=== PATIENT | female | born 1980 | race Caucasian/White ===

== ENCOUNTER 2017-12-31 14:06 | Emergency (ER) | payer OTHER ==
[2017-12-31] MEDS: MECLIZINE 12.5 MG TAB PO (18:16)
[2017-12-31] MEDS: KETOROLAC 60 MG INJ IM (18:22)
[2017-12-31] MEDS: LORAZEPAM 1 MG TAB PO (19:07)
[2017-12-31] MEDS: ONDANSETRON (ODT) 4 MG TAB ODT (19:07)
== END 2017-12-31 20:30 | disposition home or self-care (01) ==
LOC: FTE 20:30
DX: F41.1 Generalized anxiety disorder (principal)
CPT/HCPCS: 81025; 96372; 99284-25

== ENCOUNTER 2018-02-21 15:30 | Emergency (ER) | payer OTHER ==
[2018-02-21] MEDS: IBUPROFEN 600 MG TAB PO (16:35)
[2018-02-21] MEDS: DIPHTH/TET/ACEL PERTUSS (ADULT) 0.5 ML VIAL IM* (16:36)
== END 2018-02-21 17:05 | disposition home or self-care (01) ==
LOC: FTE 15:30
DX: S61.012A Laceration without foreign body of left thumb without damage to nail, initial encounter (principal); X58.XXXA Exposure to other specified factors, initial encounter; Y92.9 Unspecified place or not applicable; Z23 Encounter for immunization
CPT/HCPCS: 12001; 90471; 90715; 99283-25

== ENCOUNTER 2018-06-21 08:15 | Emergency (ER) | payer OTHER ==
[2018-06-21] MEDS: LORAZEPAM 2 MG INJ IM ×2 (08:53→10:05)
[2018-06-21] MEDS ORDERED: LORAZEPAM 1 MG TAB PO (09:00)
== END 2018-06-21 10:58 | disposition home or self-care (01) ==
LOC: FTE 08:15
DX: F41.9 Anxiety disorder, unspecified (principal); E11.9 Type 2 diabetes mellitus without complications; Z85.828 Personal history of other malignant neoplasm of skin
CPT/HCPCS: 81025; 96372; 99284-25

== ENCOUNTER 2018-10-12 18:23 | Emergency (ER) | payer OTHER ==
[2018-10-12 20:47] LABS: ADD MAN DIFF? NO
[2018-10-12 20:49] LABS: WHITE BLOOD COUNT 10.8 10^3/ul (4.8-10.8)
[2018-10-12 20:49] LABS: BASOPHIL # 0.1 10^3/ul (0.0-0.1); BASOPHILS % 0.7 % (0.0-2.0); EOSINOPHILS # 0.4 10^3/ul (0.0-0.5); EOSINOPHILS % 4.1 % (0.0-7.0); HEMATOCRIT 44.2 % (37.0-47.0); HEMOGLOBIN 14.7 g/dl (12.0-16.0); LYMPHOCYTES # 4.5 10^3/ul (0.8-2.9); LYMPHOCYTES % 41.6 % (15.0-51.0); MEAN CORPUSCULAR HEMOGLOBIN 28.9 pg (29.0-33.0); MEAN CORPUSCULAR HGB CONC 33.3 g/dl (32.0-37.0); MEAN CORPUSCULAR VOLUME 86.8 fl (82.0-101.0); MEAN PLATELET VOLUME 9.1 fl (7.4-10.4); MONOCYTE # 0.5 10^3/ul (0.3-0.9); MONOCYTES % 4.9 % (0.0-11.0); NEUTROPHIL # 5.2 10^3/ul (1.6-7.5); NEUTROPHILS % 48.3 % (39.0-77.0); PLATELET COUNT 422 10^3/UL (140-415); RED BLOOD COUNT 5.09 10^6/ul (4.20-5.40)
[2018-10-12 20:53] LABS: ADD UMIC YES; UR ASCORBIC ACID NEGATIVE (NEGATIVE); UR BACTERIA FEW /HPF (NONE SEEN); UR BILIRUBIN (Dip) NEGATIVE (NEGATIVE); UR BLOOD (Dip) 1+ mg/dL (NEGATIVE); UR CLARITY CLOUDY (CLEAR); UR COLOR YELLOW (YELLOW); UR GLUCOSE (Dip) NEGATIVE (NEGATIVE); UR KETONES (Dip) NEGATIVE (NEGATIVE); UR LEUKOCYTE ESTERASE (Dip) 2+ Leu/ul (NEGATIVE); UR MUCUS MODERATE /HPF (NONE SEEN); UR NITRITE (Dip) NEGATIVE (NEGATIVE); UR RBC 21 /HPF (0-5); UR SPECIFIC GRAVITY (Dip) 1.023 (1.003-1.030); UR SQUAMOUS EPITHELIAL CELL MANY /HPF (FEW); UR TOTAL PROTEIN (Dip) 1+ mg/dl (NEGATIVE); UR UROBILINOGEN (Dip) 2+ mg/dL (NEGATIVE); UR WBC 25 /HPF (0-5)
[2018-10-12 21:11] LABS: ALANINE AMINOTRANSFERASE 53 IU/L (13-69); ALBUMIN 4.6 g/dl (3.3-4.9); ALBUMIN/GLOBULIN RATIO 1.64; ALKALINE PHOSPHATASE 105 IU/L (42-121); ANION GAP 13 (5-13); ASPARTATE AMINO TRANSFERASE 37 IU/L (15-46); BILIRUBIN,INDIRECT 0.5 mg/dl (0-1.1); BILIRUBIN,TOTAL 0.5 mg/dl (0.2-1.3); BLOOD UREA NITROGEN 11 mg/dl (7-20); CALCIUM 9.9 mg/dl (8.4-10.2); CARBON DIOXIDE 29 mmol/L (21-31); CHLORIDE 102 mmol/L (97-110); CREATININE 0.55 mg/dl (0.44-1.00); Estimated GFR > 60 mL/min (>60); GLUCOSE 106 mg/dl (70-220); POTASSIUM 4.4 mmol/L (3.5-5.1); SODIUM 144 mmol/L (135-144); TOTAL PROTEIN 7.4 g/dl (6.1-8.1)
[2018-10-12 21:28] LABS: T3 UPTAKE 28.1 % (23.5-40.5)
[2018-10-12 21:31] LABS: FREE T4 (FREE THYROXINE) 0.96 ng/dl (0.79-2.35)
[2018-10-12 22:09] LABS: FREE THYROXINE INDEX (Calc) 2.67 ug/ml (0.65-3.89); T4 (THYROXINE) 9.5 ug/dl (5.5-11.0)
== END 2018-10-12 22:35 | disposition home or self-care (01) ==
LOC: FTE 18:23
DX: N39.0 Urinary tract infection, site not specified (principal); E11.9 Type 2 diabetes mellitus without complications
CPT/HCPCS: 80053; 81001; 81025; 84436; 84439; 84443; 84479; 84481; 85025; 87086; 99283

== ENCOUNTER 2018-12-30 09:44 | Emergency (ER) | payer OTHER ==
[2018-12-30] MEDS: traMADol 50 MG TAB PO ×2 (11:17→13:47)
[2018-12-30] MEDS: GUAIFENESIN/DM 5ML CUP PO (11:18)
[2018-12-30] MEDS: ALBUTEROL/IPRATROPIUM (NEB) 3 ML AMP HHN (12:20)
[2018-12-30] MEDS: LEVALBUTEROL (NEB) 1.25 MG/0.5 ML AMP HHN (13:14)
== END 2018-12-30 14:19 | disposition home or self-care (01) ==
LOC: FTE 14:19
DX: B34.9 Viral infection, unspecified (principal); E11.9 Type 2 diabetes mellitus without complications
CPT/HCPCS: 71046; 94640; 94664; 99284-25

== ENCOUNTER 2019-04-20 18:55 | Emergency (ER) | payer OTHER ==
[2019-04-20 21:26] LABS: ADD MAN DIFF? NO
[2019-04-20 21:28] LABS: WHITE BLOOD COUNT 10.9 10^3/ul (4.8-10.8)
[2019-04-20 21:28] LABS: BASOPHIL # 0.1 10^3/ul (0.0-0.1); BASOPHILS % 0.6 % (0.0-2.0); EOSINOPHILS # 0.3 10^3/ul (0.0-0.5); EOSINOPHILS % 2.8 % (0.0-7.0); HEMATOCRIT 40.6 % (37.0-47.0); HEMOGLOBIN 13.4 g/dl (12.0-16.0); LYMPHOCYTES # 4.1 10^3/ul (0.8-2.9); LYMPHOCYTES % 37.4 % (15.0-51.0); MEAN CORPUSCULAR HEMOGLOBIN 28.4 pg (29.0-33.0); MEAN PLATELET VOLUME 9.1 fl (7.4-10.4); MONOCYTE # 0.8 10^3/ul (0.3-0.9); NEUTROPHIL # 5.7 10^3/ul (1.6-7.5); NEUTROPHILS % 51.9 % (39.0-77.0); PLATELET COUNT 370 10^3/UL (140-415); RED BLOOD COUNT 4.72 10^6/ul (4.20-5.40); RED CELL DISTRIBUTION WIDTH 12.1 % (11.5-14.5)
[2019-04-20 21:33] LABS: ADD UMIC NO; UR ASCORBIC ACID NEGATIVE (NEGATIVE); UR BACTERIA FEW /HPF (NONE SEEN); UR BILIRUBIN (Dip) NEGATIVE (NEGATIVE); UR BLOOD (Dip) NEGATIVE (NEGATIVE); UR CLARITY SLIGHTLY CLOUDY (CLEAR); UR COLOR YELLOW (YELLOW); UR GLUCOSE (Dip) 3+ mg/dL (NEGATIVE); UR KETONES (Dip) NEGATIVE (NEGATIVE); UR LEUKOCYTE ESTERASE (Dip) NEGATIVE Leu/ul (NEGATIVE); UR NITRITE (Dip) NEGATIVE (NEGATIVE); UR RBC 4 /HPF (0-5); UR SQUAMOUS EPITHELIAL CELL FEW /HPF (FEW); UR TOTAL PROTEIN (Dip) NEGATIVE (NEGATIVE); UR UROBILINOGEN (Dip) 1+ mg/dL (NEGATIVE); UR WBC 2 /HPF (0-5)
[2019-04-20] MEDS: SOD CHLORIDE 0.9% 1,000 ML IV (21:41)
[2019-04-20] MEDS: ONDANSETRON 4 MG INJ IV (21:42)
[2019-04-20 21:44] LABS: ALANINE AMINOTRANSFERASE 35 IU/L (13-69); ALBUMIN 4.2 g/dl (3.3-4.9); ALBUMIN/GLOBULIN RATIO 1.23; ALKALINE PHOSPHATASE 80 IU/L (42-121); ANION GAP 9 (5-13); ASPARTATE AMINO TRANSFERASE 29 IU/L (15-46); BILIRUBIN,INDIRECT 0.8 mg/dl (0-1.1); BILIRUBIN,TOTAL 0.8 mg/dl (0.2-1.3); BLOOD UREA NITROGEN 11 mg/dl (7-20); CALCIUM 9.2 mg/dl (8.4-10.2); CARBON DIOXIDE 24 mmol/L (21-31); CHLORIDE 106 mmol/L (97-110); CREATININE 0.56 mg/dl (0.44-1.00); Estimated GFR > 60 mL/min (>60); GLUCOSE 162 mg/dl (70-220); LIPASE 51 U/L (23-300); POTASSIUM 3.8 mmol/L (3.5-5.1); SODIUM 139 mmol/L (135-144); TOTAL PROTEIN 7.6 g/dl (6.1-8.1)
[2019-04-20 21:55] LABS: TROPONIN-I < 0.012 ng/ml (0.000-0.120)
[2019-04-20] MEDS: LORAZEPAM 0.5 MG TAB PO (22:42)
== END 2019-04-20 23:58 | disposition home or self-care (01) ==
LOC: E/R 18:55
DX: R42 Dizziness and giddiness (principal); E11.9 Type 2 diabetes mellitus without complications; F41.9 Anxiety disorder, unspecified; E66.9 Obesity, unspecified; Z68.42 Body mass index [BMI] 45.0-49.9, adult
CPT/HCPCS: 36415; 80053; 81001; 81003; 81025; 82962; 83690; 84484; 85025; 93005; 96374; 99284-25